=== PATIENT | female | born 1995 | race Caucasian/White ===

== ENCOUNTER 2017-02-23 00:33 | Emergency (ER) | payer SELFPAY ==
[2017-02-23] MEDS ORDERED: DESYREL100 MG PO (00:48)
[2017-02-23] MEDS ORDERED: GABAPENTIN300 MG PO (00:48)
[2017-02-23] MEDS ORDERED: LEXAPRO20 MG PO (00:48)
== END 2017-02-23 01:27 | disposition home or self-care (01) ==
LOC: SED 00:33
DX: R56.9 Unspecified convulsions (principal); F41.9 Anxiety disorder, unspecified
CPT/HCPCS: 82947; 99284